=== PATIENT | female | born 1985 | race Caucasian/White ===

== ENCOUNTER 2016-09-03 17:40 | Emergency (ER) | payer SELFPAY ==
[~2016-09-03] VITALS: Ht 170.2 cm; Wt 72.6 kg
[2016-09-03 17:54] VITALS: BP 147/97
--- NOTE | 2016-09-03 18:20 | NUR ---
Patient ambulated to bed 03.
--- NOTE | 2016-09-03 18:24 | NUR ---
Dr. Smith evaluating patient at bedside.
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
[2016-09-03] MEDS ORDERED: HYDROcodone/APAP 5/325 MG 1 TAB TAB PO ONE (18:30)
[2016-09-03] MEDS ORDERED: METHOCARBAMOL 500 MG TAB PO SCH (18:30)
--- NOTE | 2016-09-03 18:42 | NUR ---
PT FOR CT VIA WHEELCHAIR, PT AAO
--- NOTE | 2016-09-03 19:06 | NUR ---
BACK FROM CT PT AAO
--- NOTE | 2016-09-03 19:10 | NUR ---
REPORT GIVEN TO JOSE
--- NOTE | 2016-09-03 19:45 | NUR ---
Patient discharged with v/s stable. Written and verbal after care instructions given and explained. Patient alert, oriented and verbalized understanding of instructions. Ambulatory with steady gait. All questions addressed prior to discharge. ID band removed. Patient advised to follow up with PMD. Rx of ROBAXIN 500MG PO, NORCO 5MG-325MG PO, MOTRIN 600MG PO given. Patient educated on indication of medication including possible reaction and side effects. Opportunity to ask questions provided and answered.
[2016-09-03 19:46] VITALS: BP 121/84
== END 2016-09-03 19:45 | disposition home or self-care (01) ==
LOC: MED 17:40
DX: S16.1XXA Strain of muscle, fascia and tendon at neck level, initial encounter (principal); S46.911A Strain of unspecified muscle, fascia and tendon at shoulder and upper arm level, right arm, initial encounter; S09.90XA Unspecified injury of head, initial encounter; M54.5 Low back pain; F17.210 Nicotine dependence, cigarettes, uncomplicated; R51 Headache; Z88.1 Allergy status to other antibiotic agents; Z88.8 Allergy status to other drugs, medicaments and biological substances; Z90.89 Acquired absence of other organs; V89.2XXA Person injured in unspecified motor-vehicle accident, traffic, initial encounter; Y93.89 Activity, other specified; Y92.411 Interstate highway as the place of occurrence of the external cause; Y99.8 Other external cause status